=== PATIENT | female | born 1980 | race Caucasian/White ===

== ENCOUNTER 2022-04-22 12:15 | Emergency (ER) | payer MEDICAID ==
[2022-04-22 12:28] VITALS: BP 141/85; PULSE 66
== END 2022-04-22 12:42 | disposition left against medical advice (07) ==
LOC: JP.ED 12:15
DX: Z53.21 Procedure and treatment not carried out due to patient leaving prior to being seen by health care provider (principal)

== ENCOUNTER 2022-07-17 14:44 | Emergency (ER) | payer MEDICAID ==
[2022-07-17 15:06] VITALS: BP 131/77; PULSE 64
== END 2022-07-17 17:20 | disposition home or self-care (01) ==
LOC: JP.ED 14:44
DX: Z48.03 Encounter for change or removal of drains (principal)
CPT/HCPCS: 99282; 99283